=== PATIENT | male | born 1970 | race Caucasian/White ===

== ENCOUNTER 2017-02-20 22:50 | Observation (INO) | payer OTHER ==
[~2017-02-20] VITALS: Ht 188 cm; Wt 102.7 kg
--- NOTE | 2017-02-20 22:53 | PHYS DOC ---
Adult General Chief Complaint Chief Complaint: chest pain HPI HPI Patient is a 46 year old male who presents with chest pain. He states this started about 15 minutes ago his bilateral chest doesn't radiate he doesn' t feel nauseated or short of breath with this. He does smoke a pack per days and that for the last 25+ years. He states he was just sitting watching TV when this started happening. He states nothing makes the pain better or worse. He states approximately 3 weeks ago he had a similar episode. He has not seek medical attention for this before today. He did take some Tylenol prior to arrival. He does have family history of vascular disease in his dad had a stroke in his 60s. He states he's never had a cardiac workup in the past. He does have dyslipidemia and takes cholesterol meds for this. Review of Systems Review of Systems Constitutional: Denies fever or chills [] Eyes: Denies change in visual acuity, redness, or eye pain [] HENT: Denies nasal congestion or sore throat [] Respiratory: Denies cough or shortness of breath [] Cardiovascular: No additional information not addressed in HPI [] GI: Denies abdominal pain, nausea, vomiting, bloody stools or diarrhea [] : Denies dysuria or hematuria [] Musculoskeletal: Denies back pain or joint pain [] Integument: Denies rash or skin lesions [] Neurologic: Denies headache, focal weakness or sensory changes [] Endocrine: Denies polyuria or polydipsia [] Physical Exam Physical Exam Constitutional: Well developed, well nourished, no acute distress, non-toxic appearance. [] HENT: Normocephalic, atraumatic, bilateral external ears normal, oropharynx moist, no oral exudates, nose normal. [] Eyes: PERRLA, EOMI, conjunctiva normal, no discharge. [] Neck: Normal range of motion, no tenderness, supple, no stridor. [] Cardiovascular:Heart rate regular rhythm, no murmur [] Lungs & Thorax: Bilateral breath sounds clear to auscultation [] Abdomen: Bowel sounds normal, soft, no tenderness, no masses, no pulsatile masses. [] Skin: Warm, dry, no erythema, no rash. [] Back: No tenderness, no CVA tenderness. [] Extremities: No tenderness, no cyanosis, no clubbing, ROM intact, no edema. [] Neurologic: Alert and oriented X 3, normal motor function, normal sensory function, no focal deficits noted. [] Psychologic: Affect normal, judgement normal, mood normal. [] EKG EKG EKG shows sinus rhythm with a rate of [address] elevations or concerning T-wave inversions, normal axis, QTC 427 will sinus, as interpreted by me. Radiology/Procedures Radiology/Procedures One view chest x-ray did not show any focal consolidations, bony abnormality's, pneumothorax, as interpreted by me. Impressions: Nausea vomiting Chest pain Tobacco abuse Dyslipidemia Course & Med Decision Making Course & Med Decision Making Pertinent Labs and Imaging studies reviewed. (See chart for details) Chest x-ray, EKG, labs don't show any acute abnormality's. Patient be admitted Dr. Gray in stable condition this time for chest pain rule out.He did vomit twice and received Zofran. He states is a recovering alcoholic and does not want any pain meds. He did receive nitroglycerin and this did not help his chest discomfort. I did add on a CT scan abdomen pelvis which is pending at this time. He also received a GI cocktail to see if this would help with his discomfort. Dragon Disclaimer Dragon Disclaimer This chart was dictated in whole or in part using Voice Recognition software in a busy, high-work load, and often noisy Emergency Department environment. It may contain unintended and wholly unrecognized errors or omissions. Departure Departure: Impression: Primary Impression: Chest pain Disposition: ADMITTED INPATIENT Admitting Physician: Sheri Gray Condition: STABLE Referrals: ASPEN HUANG DO (PCP) Problem Qualifiers Primary Impression: Chest pain Chest pain type: unspecified Qualified Codes: R07.9 - Chest pain, unspecified VARUN BEAN MD Feb 20, 2017 22:53
[2017-02-20] MEDS ORDERED: NITROGLYCERIN SUBLINGUAL 0.4 MG BOTTLE OF 25. SL PRN (23:00)
[2017-02-20 23:29] LABS: BASO # 0.1 x10^3/uL (0.0-0.2); BASO % 2 % (0-3); EOS # 0.1 x10^3/uL (0.0-0.7); EOS % 1 % (0-3); HEMATOCRIT 42.2 % (39.0-53.0); HEMOGLOBIN 14.8 g/dL (13.0-17.5); LYMPH # 3.2 x10^3/uL (1.0-4.8); LYMPH % 39 % (24-48); MEAN CORPUSCULAR HEMOGLOBIN 31 pg (25-35); MEAN CORPUSCULAR HGB CONC 35 g/dL (31-37); MEAN CORPUSCULAR VOLUME 87 fL (79-100); MONO # 0.4 x10^3/uL (0.0-1.1); MONO % 5 % (0-9); NEUT # 4.3 x10^3uL (1.8-7.7); NEUT % 53 % (31-73); PLATELET COUNT 182 x10^3/uL (140-400); RED BLOOD COUNT 4.86 x10^6/uL (4.30-5.70); RED CELL DISTRIBUTION WIDTH 13.8 % (11.5-14.5); WHITE BLOOD COUNT 8.2 x10^3/uL (4.0-11.0)
[2017-02-21 00:11] LABS: ALBUMIN 3.6 g/dL (3.4-5.0); CALCIUM 8.8 mg/dL (8.5-10.1); DIRECT BILIRUBIN 0.1 mg/dL (0.0-0.2); GFR 81.2; POTASSIUM 3.8 mmol/L (3.5-5.1); TOTAL BILIRUBIN 0.3 mg/dL (0.2-1.0); TOTAL PROTEIN 6.8 g/dL (6.4-8.2)
[2017-02-21] MEDS ORDERED: ASPIRIN 81 MG TAB.CHEW PO ONE (00:15)
[2017-02-21] MEDS ORDERED: ONDANSETRON PF 4 MG/2 ML VIAL. ONE (01:26)
[2017-02-21] MEDS ORDERED: ACETAMINOPHEN 325 MG TABLET PO PRN (01:45)
[2017-02-21] MEDS ORDERED: ONDANSETRON PF 4 MG/2 ML VIAL. IV PRN (01:45)
[2017-02-21] MEDS ORDERED: MORPHINE SULFATE 2 MG/ML DISP.SYRIN. IV PRN (01:45)
[2017-02-21] MEDS ORDERED: NITROGLYCERIN SUBLINGUAL 0.4 MG BOTTLE OF 25. SL PRN (01:45)
[2017-02-21] MEDS ORDERED: LIDO:MAALOX 1:1 20 ML SINGLE DOSE PO ONE (02:00)
[2017-02-21] MEDS ORDERED: CONTRAST GIVEN MC PRN (02:15)
[2017-02-21] MEDS ORDERED: IOHEXOL 300 MG/ML 75 ML VIAL. IV ONE (02:30)
[2017-02-21 02:45] VITALS: BP 161/91
--- NOTE | 2017-02-21 03:03 | RAD ---
CT abdomen and pelvis with contrast: Reason for examination: Abdominal pain with nausea and vomiting today. Helical images were obtained through the abdomen and pelvis with intravenous administration of 75 cc Omnipaque 300. Reconstruction was performed in sagittal and coronal planes. Exposure: One or more of the following individualized dose reduction techniques were utilized for this examination: 1. Automated exposure control 2. Adjustment of the mA and/or kV according to patient size 3. Use of iterative reconstruction technique. The lung bases are clear. The heart size is normal with no pericardial effusion. There is a small cystic lesion in the left lobe of liver. Gallbladder shows cholelithiasis. No abnormality seen at the pancreas, adrenal glands or spleen. The abdominal aorta and inferior vena cava show no acute abnormalities. The kidneys show no renal masses, renal calculi, hydronephrosis or evidence of obstructive uropathy. No abnormality seen at the appendix. The intestinal tract shows a few scattered diverticuli but no evidence of diverticulitis. No abnormality seen at the bladder. Prostate gland contains calcifications. Seminal vesicles are symmetric. No acute bony abnormalities are evident. IMPRESSION: Cholelithiasis. Small cyst in the left lobe of liver. No other acute abnormality seen in the abdomen or pelvis. Electronically signed by: Alma Chaves MD (02/21/2017 3:00 AM) [facility]
[2017-02-21] MEDS ORDERED: CITA40TA12 PO (03:56)
[2017-02-21] MEDS ORDERED: PANT40TA3 PO (03:56)
[2017-02-21] MEDS ORDERED: ATOR20TA PO (03:56)
[2017-02-21 06:36] VITALS: BP 160/94
--- NOTE | 2017-02-21 08:11 | RAD ---
Chest x-ray Indication: Chest pain technique: Portable AP chest x-ray Comparison: None Findings: Heart is normal in size. Lungs are clear of consolidation or interstitial infiltrates. No pneumothorax or pleural effusion. Visualized bony thorax is within normal limits. Impression: No acute cardiopulmonary process.
[2017-02-21] MEDS ORDERED: IV RINGERS SOLUTION,LACTATED 1,000 ML IV SCH (09:15)
[2017-02-21] MEDS ORDERED: PANTOPRAZOLE IV PUSH 40 MG VIAL. IVP SCH (09:15)
[2017-02-21 09:55] VITALS: BP 144/76
--- NOTE | 2017-02-21 10:20 | CARD ---
APPROVED REPORT EXAM: Two-dimensional and M-mode echocardiogram with Doppler and color Doppler. Other Information Quality : Average Rhythm : NSR INDICATION Chest Pain 2D DIMENSIONS Left Atrium(2D)2.7 (1.6-4.0cm)IVSd0.9 (0.7-1.1cm) Aortic Root(2D)3.0 (2.0-3.7cm)LVDd4.6 (3.9-5.9cm) LVOT Diameter2.0 (1.8-2.4cm)PWd1.0 (0.7-1.1cm) LVDs2.1 (2.5-4.0cm)FS (%) 33.2 % SV80.6 mlLVEF(%)64.2 (>50%) Aortic Valve AoV Peak Carlos.115.4cm/sAoV VTI21.0cm AO Peak GR.5.3mmHgLVOT Peak Carlos.94.0cm/s LVOT VTI 20.32cmAO Mean GR.3mmHg JUANITA (VMAX)2.10su6TAU (VTI)3.06cm2 Mitral Valve MV E Znokrdnt83.5cm/sMV E Peak Gr.2mmHg MV DECEL [id number] A Cnitqrfl31.6cm/s MV E Mean Gr.1mmHgMV PKM01qo E/A Ratio0.9MV A Fcislsby367hc MVA (PHT)2.79cm2 Tricuspid Valve TR P. Xhfmchsm734lq/sRAP BVRCNNOC8kvGa TR Peak Gr.86fwIvCLRF31vnNu LEFT VENTRICLE The left ventricle is normal size. There is normal left ventricular wall thickness. Left ventricle sy stolic function is normal. The Ejection Fraction is 60-65%. There is normal LV segmental wall motion. The left ventricular diastolic function and filling is normal for age. There is no ventricular septa l defect visualized. RIGHT VENTRICLE The right ventricle is normal size. The right ventricular systolic function is normal. ATRIA The left atrium size is normal. The right atrium size is normal. The interatrial septum is intact wit h no evidence for an atrial septal defect or patent foramen ovale as noted on 2-D or Doppler imaging. AORTIC VALVE The aortic valve is normal in structure and function. The aortic valve is trileaflet. Doppler and Col or Flow revealed no significant aortic regurgitation. There is no significant aortic valvular stenosi s. MITRAL VALVE The mitral valve is normal in structure and function. There is no mitral valve stenosis. Doppler and Color Flow revealed no mitral valve regurgitation noted. TRICUSPID VALVE The tricuspid valve is normal in structure and function. Doppler and Color Flow revealed trivial tric uspid regurgitation. The PA pressure was estimated at 17 mmHg. There is no tricuspid valve stenosis. PULMONIC VALVE The pulmonic valve is not well visualized. Doppler and Color Flow revealed no pulmonic valvular regur gitation. There is no pulmonic valvular stenosis. GREAT VESSELS The aortic root is normal in size. Pulmonary veins not recorded. The IVC is normal in size and collap ses >50% with inspiration. PERICARDIAL EFFUSION There is no evidence of significant pericardial effusion. Critical Notification Critical Value: No <Conclusion> Left ventricle systolic function is normal. The Ejection Fraction is 60-65%. There is normal LV segmental wall motion.
--- NOTE | 2017-02-21 11:46 | DS ---
DATE OF DISCHARGE: 02/21/2017 DISCHARGE DIAGNOSES: 1. Abdominal pain secondary to cholelithiasis. 2. Chest pain, myocardial infarction ruled out due to cholelithiasis. 3. Tobacco use disorder. 4. Recovered alcoholic. 5. Depression present on admission. 6. Gastroesophageal reflux disease present on admission. HOSPITAL COURSE: A 46-year-old male admitted in the early hours of 02/21/2017, after he had been watching TV and went upstairs and laid down yesterday evening and had some acute abdominal pain, which he described as mid epigastric and right upper quadrant. He had some ____ evening and also throw up times too. This also occurred about a week ago. PAST MEDICAL HISTORY: GERD, left hip issues, depression, and anger management. FAMILY HISTORY: Mother had gallbladder disease and had his gallbladder out. Also, congestive heart failure. HABITS: Positive tobacco less than 1 pack per day. Alcohol, quit alcohol 16 years ago. 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 He is emetic. PAST SURGICAL HISTORY: Left hip scope and PRK of both eyes 15 years ago. ALLERGIES: None. MEDICATIONS: Reviewed and are available on the MAR. REVIEW OF SYSTEMS: As per HPI. Denies fever, sore throat, weight loss or gain, and other issues. OBJECTIVE: VITAL SIGNS: Blood pressure 144/76, pulse 62, temperature 97.1, pulse ox 99% on room air, height 74 inches, and weight 226.38 pounds. GENERAL: A 46-year-old in no acute distress. HEENT: His hearing is normal. His eyes are clear. Nose is patent. Throat was clear. Tongue was slightly dry. NECK: Supple. LUNGS: Clear in all man. CARDIOVASCULAR: Regular rhythm and rate with a short systolic murmur. ABDOMEN: Soft. Bowel sounds are positive. He was tender in the midepigastric as well as the right upper quadrant. No masses were palpated. EXTREMITIES: Without edema. Abdominal and pelvic CT revealed cholelithiasis and small cyst in the left lobe of the liver. Chest x-ray was negative. Echocardiogram normal. LABORATORY DATA: Normal white count having trouble with labs. Chemistry cannot access. PLAN: Discussed with Dr. Conklin surgeon most likely in his best interest to have the gallbladder taken out as this may become a recurring problem and will interfere with his deployment. Dr. Wilson was accepted and most likely will have his gallbladder removed tomorrow. CIPRIANO TIMMONS DO DR: ZURI/tatyana JOB#: [id number] / [id number] TRICIA Gordon THOMAS MD
--- NOTE | 2017-02-21 18:56 | EKG ---
[address] [address] Test Date: 2017-02-20 Test Time: 22:57:53 Pat Name: MEET BAILEY Department: Room: Gender: M Slitter Operator: TIFFANY : 1970 Requested By: VARUN BEAN Order Number: [id number] Reading MD: Measurements Intervals [place] Rate: 66 P: 0 GA: 184 QRS: 11 QRSD: 92 T: 16 QT: 406 QTc: 427 Interpretive Statements SINUS RHYTHM R-S TRANSITION ZONE IN V LEADS DISPLACED TO THE RIGHT QRS(T) CONTOUR ABNORMALITY CONSIDER ANTEROLATERAL MYOCARDIAL DAMAGE POSSIBLY ABNORMAL ECG RI6.01 No previous ECG available for comparison
== END 2017-02-21 11:27 | disposition short-term general hospital (02) ==
LOC: ER 22:50 → ICU 02-21 01:30
PROVIDERS: ADMIT Family Medicine; ATTEND Family Medicine
DX: K80.20 Calculus of gallbladder without cholecystitis without obstruction (principal); R07.9 Chest pain, unspecified; F32.9 Major depressive disorder, single episode, unspecified; K21.9 Gastro-esophageal reflux disease without esophagitis; F17.210 Nicotine dependence, cigarettes, uncomplicated; E78.5 Hyperlipidemia, unspecified; Z86.73 Personal history of transient ischemic attack (TIA), and cerebral infarction without residual deficits; Z82.49 Family history of ischemic heart disease and other diseases of the circulatory system
CPT/HCPCS: 36415; 71010; 74177; 80048; 80076; 82553; 83690; 83735; 83880; 84484; 85025; 85610; 85730; 87641; 93005; 93306; 96361; 96374; 96375; 96376; 99285; C9113; G0378; J2270; J3010; J7120; Q9967; G0379